=== PATIENT | male | born 1965 | race Caucasian/White ===

== ENCOUNTER → 2025-02-15 | Day surgery (SDC) | payer OTHER ==
[~2025-02-15] MED LIST: ACETAMINOPHEN 1000 MG/100 ML 100 ML IV ONE; BUPIVACAINE LIPOSOME/PF 266 MG/20 ML IJ ONE; CALCITRIOL0.25 MCG PO; CEFAZOLIN SODIUM 2 GM ONE; D3-5000125 MCG; DEXMEDETOMIDINE HCL 2 ML ONE; EPHEDRINE SULFATE INJ 50 MG/ML VIAL ONE; FENTANYL CITRATE/PF 100MCG/2 ML INJ ONE; FIBER LAX625 MG PO; FLOMAX0.4 MG PO; HYDROCODON-ACE1 EA11 PO; LACTATED RINGER'S 1,000 ML ONE; LIDOCAINE HCL 2% LOCAL INJ 5 ML SDV VIAL INJ ONE; MAGOX 400400 MG PO; MELOXICAM7.5 MG PO; METHOCARBAMOL750 MG PO; METOPROLOL SUCC50 MG PO; MULTI-VITAMIN1 EACH PO; NEURONTIN300 MG PO; ONDANSETRON HCL INJ 2MG/ML 2ML 2 MG/ML VIAL ONE; PROPOFOL IV EMULSION 10 MG/ML 20 ML VIAL ONE; ROCURONIUM BROMIDE 1 ML IV ONE; SEVOFLURANE INHAL SOLN 250 ML PEN BTL ONE; SODIUM CHLORIDE 0.9% 100 ML ONE; SUCCINYLCHOLINE CHLORIDE 20 MG/ML 10ML VIAL ONE; SUGAMMADEX SODIUM 200 MG/2 ML VIAL IV ONE; TIZANIDINE HCL4 MG PO; ZOLPIDEM TARTRAT5 MG PO
[2025-02-15] MEDS: HYDROCODONE/APAP 5MG-325MG TAB ONE (17:20)
[2025-02-15] MEDS: MEPERIDINE HCL INJ 25 MG/ML VIAL ONE (17:29)
[2025-02-15 18:20] VITALS: BP 147/90; PULSE 60; RESP 16; TEMP 97; O2SAT 97
[2025-02-15] MEDS: ONDANSETRON HCL 4 MG ORAL DISINTEGRATING TAB ONE (18:20)
== END | disposition home or self-care (01) ==
LOC: OR 07:31
PROVIDERS: ATTEND Orthopaedic Surgery Sports Medicine
DX: T84.120A Displacement of internal fixation device of right humerus, initial encounter (principal); S42.391K Other fracture of shaft of right humerus, subsequent encounter for fracture with nonunion; I10 Essential (primary) hypertension; F17.210 Nicotine dependence, cigarettes, uncomplicated; Z89.511 Acquired absence of right leg below knee; Z79.891 Long term (current) use of opiate analgesic; Z01.810 Encounter for preprocedural cardiovascular examination; Y83.8 Other surgical procedures as the cause of abnormal reaction of the patient, or of later complication, without mention of misadventure at the time of the procedure
CPT/HCPCS: 24430; 71046; 93005; C1713 ×13; C1762; C1769; C1776; C1889; J0131; J0330; J0666; J0690; J2003; J2175; J2405; J2704; J3010; J7050; J7121; Q0162; 76000